=== PATIENT | female | born 1960 | race Caucasian/White ===

== ENCOUNTER 2023-09-01 14:38 | Emergency (ER) | payer SELFPAY ==
[2023-09-01 14:41] VITALS: BP 127/83; PULSE 93; RESP 11; TEMP 36.6; O2SAT 97; BMI 25.0
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
--- NOTE | 2023-09-01 15:50 | RAD_ITS ---
STUDY: X-RAY - PELVIS REASON FOR EXAM: Female, 63 years old. pelvic pain TECHNIQUE: One view of the pelvis was obtained. COMPARISON: None. FINDINGS: There is a non-specific bowel gas pattern. Normal visualized soft tissue structures. Normal bilateral iliac wings, sacroiliac joints and visualized sacrum. Normal visualized bilateral superior and inferior pubic rami. Normal pubic symphysis. Normal ischial tuberosities. Normal visualized right femoral head. Normal right acetabulum. Normal right hip joint. Normal visualized left femoral head. Normal left acetabulum. Normal left hip joint. RAD/Pelvis 1 or 2 Views IMPRESSION: Normal x-ray examination of the pelvis. Electronically Signed: John Sheridan MD at 16:14 EDT ,
--- NOTE | 2023-09-01 15:50 | RAD_ITS ---
STUDY: X-RAY - UNILATERAL RIBS ( LEFT ) WITH CHEST REASON FOR EXAM: Female, 63 years old. pain TECHNIQUE - RIBS: 4. view(s) of the ribs. TECHNIQUE - CHEST: COMPARISON: None. FINDINGS - RIBS: Mild deformity of the anterolateral portion of the left eighth rib consistent with nondisplaced fracture of indeterminate age. No other evidence for fracture. FINDINGS - CHEST: The lungs are clear and expanded. There is no demonstrated pleural abnormality. Normal size heart. Normal mediastinum and sheldon. Normal visualized pulmonary arteries. Normal visualized aortic arch and descending thoracic aorta. Normal visualized thoracic spine. Normal visualized , clavicles, and shoulders. There is no demonstrated abnormality of the visualized soft tissue structures of the upper abdomen. RAD/Ribs Uni Min 3V w/PA Chest IMPRESSION: RIBS: Mild deformity of the anterolateral portion of the left eighth rib consistent with nondisplaced fracture of indeterminate age. CHEST: Normal x-ray examination of the chest. Electronically Signed: John Sheridan MD at 16:18 EDT ,
[2023-09-01] MEDS: Ketorolac 15 MG/ML Vial IV (16:42)
[2023-09-01 16:43] VITALS: BP 118/67; PULSE 81; RESP 14; TEMP 36.6; O2SAT 98
--- NOTE | 2023-09-01 16:44 | ED.RN ---
attempted to ambulate, oh, im just in so much pain, oh, im dizzy, i just cant. pt being medicated then will attempt to ambulate again. provider aware.
--- NOTE | 2023-09-01 16:47 | CPS ---
patient being discharged to home, patient was taught how to use her incentive spirometer and how often to use it at home.
[2023-09-01] MEDS: Ondansetron 4 MG/2 ML Vial IV (17:46)
[2023-09-01] MEDS: Morphine 4 MG/ML Syringe IV (17:46)
[2023-09-01 18:00] VITALS: BP 111/69; PULSE 105; RESP 14; O2SAT 96
[2023-09-01] MEDS: 0.9% Normal Saline (1000mL) 1,000 ML 999 ML IV (18:54)
--- NOTE | 2023-09-01 20:05 | ED.RN ---
pt refusing meds to bed, i'll just try tylenol and ibuprofen.
== END 2023-09-01 20:36 | disposition home or self-care (01) ==
PROVIDERS: Emergency Provider Emergency Medicine; Visit Provider Emergency Medicine
DX: S22.32XA Fracture of one rib, left side, initial encounter for closed fracture (principal); S51.012A Laceration without foreign body of left elbow, initial encounter; S30.0XXA Contusion of lower back and pelvis, initial encounter; V89.2XXA Person injured in unspecified motor-vehicle accident, traffic, initial encounter
CPT/HCPCS: 71101; 72170; 96361; 96374; 96375; 99282; J2405